=== PATIENT | male | born 1970 | race Hispanic/Latino ===

== ENCOUNTER → 2020-06-23 | Outpatient (CLI) | payer OTHER ==
[~2020-06-23] MED LIST: LIDOCAINE HCL 2% LOCAL 20 ML VIAL ONE; LIDOCAINE VISC 2% SOLN 15 ML UDC ONE
== END ==
LOC: WCC 13:43
PROVIDERS: ATTEND Podiatrist
DX: E11.621 Type 2 diabetes mellitus with foot ulcer (principal); L97.426 Non-pressure chronic ulcer of left heel and midfoot with bone involvement without evidence of necrosis; G90.09 Other idiopathic peripheral autonomic neuropathy; I10 Essential (primary) hypertension; E78.5 Hyperlipidemia, unspecified
CPT/HCPCS: 36415; 87071; 87075; 87205

== ENCOUNTER → 2020-06-30 | Outpatient (CLI) | payer OTHER ==
[2020-06-30 15:41] LABS: BASOPHILS # (AUTO) 0.1 (0.0-0.1); BASOPHILS % 0.5 % (0.0-1.0); EOSINOPHILS # (AUTO) 0.1 (0.0-0.4); HEMATOCRIT 30.3 % (38.2-49.6); HEMOGLOBIN 9.2 g/dL (14.0-18.0); LYMPHOCYTES # (AUTO) 1.4 (1.0-3.2); LYMPHOCYTES % 10.7 % (18.0-39.1); MEAN CORPUSCULAR HEMOGLOBIN 24.8 pg (28-32); MEAN CORPUSCULAR HGB CONC 30.4 g/dL (31-35); MEAN CORPUSCULAR VOLUME 81.7 fL (81-99); MONOCYTES # (AUTO) 0.9 (0.2-0.8); NEUTROPHILS # (AUTO) 10.3 (2.1-6.9); NEUTROPHILS % 80.3 % (38.7-80.0); PLATELET COUNT 641 x10e3/uL (140-360); RED BLOOD COUNT 3.71 x10e6/uL (4.3-5.7); RED CELL DISTRIBUTION WIDTH 14.1 % (11.7-14.4)
[2020-06-30 15:59] LABS: ALANINE AMINOTRANSFERASE 22 IU/L (0-55); ALKALINE PHOSPHATASE 194 IU/L (40-150); ANION GAP 14.3 mmol/L (8-16); BLOOD UREA NITROGEN 16 mg/dL (7-26); BUN/CREATININE RATIO 19 (6-25); CARBON DIOXIDE 26 mmol/L (22-29); CHLORIDE 99 mmol/L (98-107); CREATININE, SERUM 0.83 mg/dL (0.72-1.25); EST GLOMERULAR FILTRATION RATE > 60 ML/MIN (60-); GLUCOSE 185 mg/dL (74-118); POTASSIUM 4.3 mmol/L (3.5-5.1); SODIUM 135 mmol/L (136-145)
[2020-06-30 16:01] LABS: ALBUMIN < 0.4 g/dL (3.5-5.0)
[2020-06-30 16:15] LABS: ERYTHROCYTE SEDIMENTATION RATE 89 mm/hr (0-13)
== END ==
LOC: WCC 13:32
PROVIDERS: ATTEND Podiatrist
DX: E11.621 Type 2 diabetes mellitus with foot ulcer (principal); L97.426 Non-pressure chronic ulcer of left heel and midfoot with bone involvement without evidence of necrosis; E78.5 Hyperlipidemia, unspecified; G90.09 Other idiopathic peripheral autonomic neuropathy; I10 Essential (primary) hypertension
CPT/HCPCS: 36415; 80053; 83036; 84134; 84550; 85025; 85651